=== PATIENT | male | born 1955 | race Caucasian/White ===

== ENCOUNTER 2017-02-06 15:59 | Observation (INO) | payer OTHER ==
[~2017-02-06] VITALS: Ht 175.3 cm; Wt 72.1 kg
--- NOTE | 2017-02-06 16:06 | NUR ---
TRIAGE; PT TO ED C/O LOWER ABD PAIN RADIATING INTO HIS GROIN SINCE 8AM TODAY. STATES HE STARTED TO VOMIT SINCE NOON ABOUT 2-3 TIMES, FEELS NAUSEOUS NOW. C/O LOWER BACK PAIN. DENIES ANY URINARY S/S AT THIS TIME. STATES PAIN IN GROIN IS CAUSING DISCOMFORT TO HIS TESTICLES. DENIES ANY DIARRHEA.
--- NOTE | 2017-02-06 16:09 | ED GI/GU/ABDOMINAL COMPLAINT ---
History of Present Illness General Chief Complaint: Abdominal Pain/Flank Pain Stated Complaint: ABD PAIN Source: patient, family, old records Exam Limitations: no limitations Allergies Coded Allergies: Penicillins (Intermediate, SWELLING 02/06/17) Triage Note: TRIAGE; PT TO ED C/O LOWER ABD PAIN RADIATING INTO HIS GROIN SINCE 8AM TODAY. STATES HE STARTED TO VOMIT SINCE NOON ABOUT 2-3 TIMES, FEELS NAUSEOUS NOW. C/O LOWER BACK PAIN. DENIES ANY URINARY S/S AT THIS TIME. STATES PAIN IN GROIN IS CAUSING DISCOMFORT TO HIS TESTICLES. DENIES ANY DIARRHEA. Triage Nurses Notes Reviewed? yes Onset: Abrupt Duration: hour(s): (8), constant, waxing and waning Timing: recent history Quality/Severity: aching, sharpness, severe Severity Numbers: 9 Location: left lower quadrant, right lower quadrant, suprapubic Radiation: back, groin Activities at Onset: none Prior Abdominal Problems: none No Modifying Factors: none Associated Symptoms: nausea/vomiting HPI: 61-year-old male with no medical history presents emergency room complaining of sudden onset of bilateral lower quadrant abdominal pain right greater then left radiating into his groin and lower back since 8:00 this morning. The pain started at 8 AM this morning periumbilical. He states that he's had 3 episodes of vomiting secondary to pain. He denies history of similar episodes in the past. Pain is constant waxing and waning in intensity sharp severe aching. Nothing makes it better or worse otherwise. No sick contacts. He has not taken anything for his symptoms no change in his bowel movements. No history of abdominal surgeries in the past. No fever no chills no chest pain shortness of breath. No hematuria dysuria urgency or frequency The patient denies any known trauma injury or heavy lifting he denies noting any hernia to his groin our abdomen. (ABBY NOBLES,BOBBI) Vital Signs & Intake/Output Vital Signs & Intake/Output Vital Signs Date Time Temp Pulse Resp B/P Pulse O2 O2 Flow FiO2 Ox Delivery Rate 02/06 1805 99.2 81 18 123/67 95 Room Air 02/06 1606 97.7 66 18 102/63 97 Room Air Reconcile Medications Diclofenac Sodium 75 MG TABLET.DR 1 TAB PO BID PAIN/INFLAMMATION (Reported) (JAMIE HERNANDEZ,BOBBY [place]) Past History Travel History Traveled to [place] past 21 day No Medical History Any Pertinent Medical History? none Surgical History Surgical History: none Psychosocial History What is your primary language [place] Zealander Tobacco Use: Never used ETOH Use: denies use Family History Hx Contributory? No (BOBBI WATTS) Review of Systems Review of Systems Constitutional: Reports: see HPI. All Other Systems: Reviewed and Negative Comments Review of systems: See HPI, All other systems negative. Constitutional, no chills no fever, no malaise HEENT: No visual changes no sore throat no congestion Cardiovascular: No chest pain , no palpitation Skin, no rashes, no change in skin Respiratory: No dyspnea no cough no sputum GI: nausea vomiting, no diarrhea, no bloating/constipation : No dysuria No hematuria, no frequency, no discharge Muscle skeletal: No joint pain,no back pain, no neck pain, Neurologic: No numbness no headache Psych: No stress Heme/endocrine: No bruising no bleeding Immunology: No lymphadenopathy (BOBBI WATTS) Physical Exam Physical Exam General Appearance: well developed/nourished, no apparent distress, alert Gastrointestinal: soft Comments: Well-developed well-nourished person in no acute distress HEENT: Normal EENT exam; PERRL, EOMI, HEAD is atraumatic. moist mucous membranes. Neck: Supple, normal range of motion Back: Nontender, no CVA tenderness. Full range of motion Cardiovascular: Regular rate and rhythms no murmurs rubs Respiratory: Chest nontender.There were no bony deformities, no asymmetry. No respiratory distress. Patient speaking in full complete sentences. Breath sounds clear to auscultation bilaterally: NO W/R/R Abdomen: Soft, periumbilical,/RLQ/LLQ tenderness to palpation nondistended, no appreciable organomegaly. Normal bowel sounds. (+) rebound, NO guarding, No ascites. No hernia Male : Normal external genitalia, testes nontender. No scrotal Swelling or mases, No lesions/discharge. No palpable hernia Extremity: No edema, full range of motion of extremities, Neuro: Alert oriented x3, motor sensory normal,There were no obvious focal neurologic abnormalities. Skin: No appreciable rash on exposed skin, skin is warm and dry. Psych: Mood and affect is normal, memory and judgment is normal. Core Measures ACS in differential dx? No Severe Sepsis Present: No Septic Shock Present: No (BOBBI WATTS) Progress Differential Diagnosis: appendicitis, bowel obstruction, colon cancer, diverticulitis, hernia, inflamm bowel dis, prostatitis, peptic ulcer, PUD/GERD, perforated viscous, pyelonephritis, SBO, ureterolithiasis, urinary retention, urethritis, UTI/pyelo Diagnostic Imaging: Viewed by Me: CT Scan. Discussed w/RAD: CT Scan. Radiology Impression: PATIENT: SJ GARSIA PRESENT AGE: 61 PATIENT ACCOUNT NO: [id number] : 55 LOCATION: [facility] ORDERING PHYSICIAN: BOBBI NOBLES SERVICE DATE: 02/06/17 EXAM TYPE: CAT - CT ABD & PELVIS W/O IV CONTRAS EXAMINATION: CT ABDOMEN AND PELVIS WITHOUT CONTRAST CLINICAL INFORMATION: Lower quadrant abdominal pain radiating into the back COMPARISON: None TECHNIQUE: Multidetector volumetric imaging was performed from the superior aspect of the liver through the pubic symphysis. Sagittal and coronal reformatted images were obtained on the technologist's workstation. DLP: 279.7 mGy-cm FINDINGS: LUNG BASES: The visualized lung bases are unremarkable. LIVER, GALLBLADDER, AND BILIARY TREE: The liver is normal in size, shape, and attenuation. No focal hepatic lesion or biliary ductal dilatation is present. The gallbladder is unremarkable with no evidence of radiopaque gallstones, gallbladder wall thickening, or obvious pericholecystic inflammatory changes. PANCREAS: Unremarkable. SPLEEN: Unremarkable. ADRENAL GLANDS: Unremarkable. KIDNEYS AND URETERS: The kidneys are normal in size, shape, and attenuation. No hydronephrosis, hydroureter, or calculi seen. No perinephric stranding. There is a parapelvic cyst within the right kidney measuring approximately 2.2 cm in diameter. There is a 2.7 cm exophytic cyst along the medial aspect of the left kidney. BLADDER: Unremarkable. GASTROINTESTINAL TRACT: There is significant inflammatory changes in the right lower quadrant. There is dilatation of a tubular structure which is blind ending and terminates in the pelvis measuring up to 1.5 cm. This structure is fluid-filled. Hyperdense material is noted within the proximal portion of the structure. Given the stranding of the adjacent mesentery and the overall appearance and location the finding is most suspicious for acute appendicitis. There are small lymph nodes within the mesentery surrounding this region. ABDOMINAL WALL: No significant hernia is appreciated. LYMPH NODES: Normal. VASCULAR: Unremarkable. PELVIC VISCERA: Prostate and seminal vesicles are unremarkable. OSSEOUS STRUCTURES: Unremarkable. IMPRESSION: Limited noncontrast study. Findings most concerning for acute appendicitis. No evidence for renal obstruction. DICTATED BY: VIJAY MARTINES MD DATE/TIME DICTATED:02/06/171653 INSULATION TECHNICIAN:TESSA DATE/TIME TRANSCRIBED:02/06/171653 CONFIDENTIAL, DO NOT COPY WITHOUT APPROPRIATE AUTHORIZATION. <Electronically signed in Other Vendor System> SIGNED BY: VIJAY MARTINES MD 02/06/17 1716 Initial ED EKG: normal intervals, normal p-waves, normal QRS complex, normal sinus rhythm (80) (ABBY NOBLES,BOBBI) Plan of Care: Orders Procedure Date/time Status Add-on Test (ER Only) 02/06 1853 Active EKG 02/06 1733 Active TYPE & SCREEN (NOT X-MATCH) 02/06 1725 Complete PARTIAL THROMBOPLASTIN TIME 02/06 1630 Complete PROTHROMBIN TIME 02/06 1630 Complete Saline Lock 02/06 1616 Active URINALYSIS 02/06 1616 Complete LIPASE 02/06 1616 Complete COMPREHENSIVE METABOLIC PANEL 02/06 1616 Complete CBC WITHOUT DIFFERENTIAL 02/06 161 Complete AMYLASE 02/06 161 Complete Laboratory Tests 02/06/17 1822: Urinalysis LIGHT H, Urine Color YEL, Urine Clarity CLEAR, Urine pH 6.0, Ur Specific [place] 1.025, Urine Protein TRACE H, Urine Ketones >=80, Urine Nitrite NEG, Urine Bilirubin NEG@ICTO, Urine Urobilinogen 0.2, Ur Leukocyte Esterase NEG, Ur Microscopic SEDIMENT EXAMINED, Urine RBC RARE, Urine WBC 1-3 H , Ur Epithelial Cells RARE, Urine Bacteria FEW H, Urine Mucus MOD H, Urine Hemoglobin TRACE-LYSED H, Urine Glucose NEG 02/06/17 1725: APTT Cancelled 02/06/17 1630: Anion Gap 9, Estimated GFR > 60, BUN/Creatinine Ratio 21.3, Glucose 112 H, Calcium 10.1, Total Bilirubin 1.0, AST 15 L, ALT 31, Alkaline Phosphatase 88, Total Protein 7.2, Albumin 4.5, Globulin 2.7, Albumin/Globulin Ratio 1.7, Amylase 58, Lipase 50, PT 11.7, INR 1.12, APTT 32, CBC w Diff MAN DIFF ORDERED, RBC 4.74, MCV 96.7 H, MCH 32.2 H, RDW 14.4, MPV 7.2 L, Gran % 91.4 H, Lymphocytes % 3.9 L, Monocytes % 4.7, Eosinophils % 0, Basophils % 0 L, Absolute Granulocytes 15.7 H, Segmented Neutrophils 92 H, Band Neutrophils 2, Absolute Lymphocytes 0.7 L, Lymphocytes 6 L, Absolute Monocytes 0.8 H, Absolute Eosinophils 0, Absolute Basophils 0, Platelet Estimate ADEQUATE, Normal RBC Morphology N, PUBS MCHC 33.3 Labs ordered old records reviewed patient medicated with Toradol 30, morphine 4 IV Zofran 4 IV old records reviewed CAT scan ordered case was discussed with Dr. Patterson agrees with the plan 02/06/2017 5:31:34 PM call placed to surgery discussed the patient is is CAT scan and lab results. Patient reports pain is improved with morphine. Case discussed with Dr. Patterson 1800 CASE D/W DR BLACK WILL HAVE SURGICAL PA EVALUATE THE PT 1809 SURGICA PA Sabino CARRILLO IN DEPT TO EVAL PT (BOBBI WATTS) Departure Departure Time of Disposition: 1836 Disposition: STILL A PATIENT Condition: Stable Clinical Impression Primary Impression: Appendicitis Departure Forms: Customer Survey General Discharge Information OR/GI Note Spoke With: WAYNE HERNANDEZ,RICCARDO Nash ED Treatment Decision: SJ GARSIA requires urgent operative management or an emergent procedure that cannot be performed in the Emergency Room setting. Transport To: [facility] (BOBBI WATTS) PA/REAL ESTATE TEACHER Co-Sign Statement Statement: ED Attending supervision documentation- [] I saw and evaluated the patient. I have also reviewed all the pertinent lab results and diagnostic results. I agree with the findings and the plan of care as documented in the PA's/REAL ESTATE TEACHER's documentation. [x] I have reviewed the ED Record and agree with the PA's/REAL ESTATE TEACHER's documentation. [] Additions or exceptions (if any) to the PAs/REAL ESTATE TEACHER's note and plan are summarized below: [] (JAMIE HERNANDEZ,BOBBY [place])
--- NOTE | 2017-02-06 16:10 | NUR ---
PT TO ROOM20 BY WHEELCHAIR. MALLORIE MORA TO BEDSIDE FOR PT EVAL.
--- NOTE | 2017-02-06 16:38 | NUR ---
BLOOD DRAWN AND SENT TO LAB. IV EST, PT MEDICATED WITH ZOFRAN,TORADOL, AND MORPHINE PER EMAR. NS INFUSING PER EMAR.
--- NOTE | 2017-02-06 16:40 | NUR ---
PT TO CT VIA STRETCHER
[2017-02-06] MEDS ORDERED: DICLOFENAC SODI75 M2 PO (16:43)
[2017-02-06 16:44] LABS: ABSOLUTE BASOPHIL COUNT 0 /CUMM (0.0-0.2); ABSOLUTE EOSINOPHIL COUNT 0 /CUMM (0.0-0.7); ABSOLUTE GRANULOCYTE CT 15.7 /CUMM (1.4-6.5); ABSOLUTE LYMPH COUNT 0.7 /CUMM (1.2-3.4); ABSOLUTE MONOCYTE COUNT 0.8 /CUMM (0.10-0.60); BASOPHIL % 0 % (0.0-2.0); EOSINOPHIL % 0 % (0-5); HEMATOCRIT 45.8 % (42-52); MEAN CORPUSCULAR HGB 32.2 PG (27.0-31.0); MEAN CORPUSCULAR HGB CONC 33.3 G/DL (33.0-37.0); MEAN CORPUSCULAR VOLUME 96.7 FL (80.0-94.0); MEAN PLATELET VOLUME 7.2 FL (7.4-10.4); PLATELET COUNT 297 /CUMM (130-400); RBC DISTRIBUTION WIDTH 14.4 % (11.5-14.5); RED BLOOD CELL CT 4.74 /CUMM (4.70-6.10)
[2017-02-06 16:48] LABS: WHITE BLOOD CELL COUNT 17.2 /CUMM (4.8-10.8)
--- NOTE | 2017-02-06 17:16 | CT SCAN REPORT ---
EXAMINATION: CT ABDOMEN AND PELVIS WITHOUT CONTRAST CLINICAL INFORMATION: Lower quadrant abdominal pain radiating into the back COMPARISON: None TECHNIQUE: Multidetector volumetric imaging was performed from the superior aspect of the liver through the pubic symphysis. Sagittal and coronal reformatted images were obtained on the technologist's workstation. DLP: 279.7 mGy-cm FINDINGS: LUNG BASES: The visualized lung bases are unremarkable. LIVER, GALLBLADDER, AND BILIARY TREE: The liver is normal in size, shape, and attenuation. No focal hepatic lesion or biliary ductal dilatation is present. The gallbladder is unremarkable with no evidence of radiopaque gallstones, gallbladder wall thickening, or obvious pericholecystic inflammatory changes. PANCREAS: Unremarkable. SPLEEN: Unremarkable. ADRENAL GLANDS: Unremarkable. KIDNEYS AND URETERS: The kidneys are normal in size, shape, and attenuation. No hydronephrosis, hydroureter, or calculi seen. No perinephric stranding. There is a parapelvic cyst within the right kidney measuring approximately 2.2 cm in diameter. There is a 2.7 cm exophytic cyst along the medial aspect of the left kidney. BLADDER: Unremarkable. GASTROINTESTINAL TRACT: There is significant inflammatory changes in the right lower quadrant. There is dilatation of a tubular structure which is blind ending and terminates in the pelvis measuring up to 1.5 cm. This structure is fluid-filled. Hyperdense material is noted within the proximal portion of the structure. Given the stranding of the adjacent mesentery and the overall appearance and location the finding is most suspicious for acute appendicitis. There are small lymph nodes within the mesentery surrounding this region. ABDOMINAL WALL: No significant hernia is appreciated. LYMPH NODES: Normal. VASCULAR: Unremarkable. PELVIC VISCERA: Prostate and seminal vesicles are unremarkable. OSSEOUS STRUCTURES: Unremarkable. IMPRESSION: Limited noncontrast study. Findings most concerning for acute appendicitis. No evidence for renal obstruction.
[2017-02-06 17:25] LABS: GRANULOCYTE % 91.4 % (42.2-75.2)
--- NOTE | 2017-02-06 18:04 | NUR ---
KEFZOL INFUSING PER EMAR. PRE-OP SCRUB COMPLETED.
--- NOTE | 2017-02-06 18:08 | NUR ---
SURGICAL PA AT BEDSIDE FOR PT EVAL.
--- NOTE | 2017-02-06 18:13 | Admission Core Measures ---
Admission Lab Results I reviewed the following labs: Laboratory Tests 02/06 1630 Chemistry Sodium (137 - 145 mmol/L) 140 Potassium (3.5 - 5.1 mmol/L) 4.5 Chloride (98 - 107 mmol/L) 102 Carbon Dioxide (22 - 30 mmol/L) 28 Anion Gap (5 - 16) 9 BUN (9 - 20 mg/dL) 17 Creatinine (0.7 - 1.2 mg/dL) 0.8 Estimated GFR (>60 ml/min) > 60 BUN/Creatinine Ratio (7 - 25 %) 21.3 Glucose (65 - 99 mg/dL) 112 H Calcium (8.4 - 10.2 mg/dL) 10.1 Total Bilirubin (0.2 - 1.3 mg/dL) 1.0 AST (17 - 59 U/L) 15 L ALT (21 - 72 U/L) 31 Alkaline Phosphatase (< 127 U/L) 88 Total Protein (6.3 - 8.2 g/dL) 7.2 Albumin (3.5 - 5.0 g/dL) 4.5 Globulin (1.9 - 4.2 gm/dL) 2.7 Albumin/Globulin Ratio (1.1 - 2.2 %) 1.7 Amylase (30 - 110 U/L) 58 Lipase (23 - 300 U/L) 50 Hematology CBC w Diff MAN DIFF ORDERED WBC (4.8 - 10.8 /CUMM) 17.2 H RBC (4.70 - 6.10 /CUMM) 4.74 Hgb (14.0 - 18.0 G/DL) 15.3 Hct (42 - 52 %) 45.8 MCV (80.0 - 94.0 FL) 96.7 H MCH (27.0 - 31.0 PG) 32.2 H RDW (11.5 - 14.5 %) 14.4 Plt Count (130 - 400 /CUMM) 297 MPV (7.4 - 10.4 FL) 7.2 L Gran % (42.2 - 75.2 %) 91.4 H Lymphocytes % (20.5 - 51.1 %) 3.9 L Monocytes % (1.7 - 9.3 %) 4.7 Eosinophils % (0 - 5 %) 0 Basophils % (0.0 - 2.0 %) 0 L Absolute Granulocytes (1.4 - 6.5 /CUMM) 15.7 H Segmented Neutrophils (42.2 - 75.2 %) 92 H Band Neutrophils (0.0 - 5.0 %) 2 Absolute Lymphocytes (1.2 - 3.4 /CUMM) 0.7 L Lymphocytes (20.5 - 51.1 %) 6 L Absolute Monocytes (0.10 - 0.60 /CUMM) 0.8 H Absolute Eosinophils (0.0 - 0.7 /CUMM) 0 Absolute Basophils (0.0 - 0.2 /CUMM) 0 Platelet Estimate (ADEQUATE) ADEQUATE Normal RBC Morphology N PUBS MCHC (33.0 - 37.0 G/DL) 33.3 Admission Meds I reviewed the following Meds: Current Medications Sig/Merari Start time Last Medication Dose Stop Time Status Admin Metronidazole 500 MG ONCE ONE 02/06 1745 AC (Flagyl) 02/06 1844 N/A 1 UNIT (No Carrier) Acute Coronary Syndrome Inclusion Criteria ACS Diagnosis No Inpatient Core Measures LDL Reminder: If No, please order W/I first 24hr of stay Congestive Heart Failure Inclusion Criteria CHF Diagnosis No Cerebrovascular accident Inclusion Criteria CVA/TIA Diagnosis No Inpatient Core Measures Bedside Swallow Eval Reminder: If BSE failed, place ST order Antithrombotic Reminder: Order Antithrombotic Medication by end of day 2 Antithrombotic Reminder: Document Reason Antithrombotic Not ordered by end of day 2 AFIB/Flutter Reminder: If Present, add to problem list AFIB/Flutter Reminder: Order Anticoag Medication for pts with AFIB/Flutter Atherosclerosis Reminder: If Present, add to problem list LDL Reminder: If No, please order W/I first 24hr of stay PT Order Reminder: If No, please order Venous thromboembolism Inpatient Core Measures VTE Risk Factors: Age > 40, Surgery No [facility] VTE prophylaxis d/t No contraindications No VTE Pharm Prophylaxis d/t No contraindications Inclusion Criteria - Per Current guidelines, there needs to be overlap - treatment for the first 5 days of Warfarin therapy. - Parenteral Anticoagulation (IV or SC) needs to be - given along with Warfarin therapy. VTE Diagnosis No VTE Type NONE VTE Confirmed by (Test) NONE Problem List As ranked by this Provider includes Assessment & Plan 1. Appendicitis HOME MEDS Home Med List Diclofenac Sodium 75 MG TABLET.DR 1 TAB PO BID PAIN/INFLAMMATION (Reported)
--- NOTE | 2017-02-06 18:22 | History & Physical Pre-Op ---
DOUG LEHMAN 02/06/17 181: General Information and HPI MD Statement: I have seen and personally examined SJ GARSIA and documented this H&P. The patient is a 61 year old M who presented with a patient stated chief complaint of abdominal pain 1 day. Source of Information: patient Exam Limitations: no limitations History of Present Illness: 61-year-old male who presented to the emergency department earlier today with complaints of abdominal pain which started earlier this morning. The patient was seen he reports feeling well last night and this morning when he awoke. He went to work and shortly thereafter started experiencing some periumbilical sharp and crampy abdominal pain which is constant in nature. Shortly thereafter he developed episodes of nausea/vomiting and anorexia. His pain slowly migrated to the right lower quadrant and groin area. He had to regular bowel movements earlier today and came to the emergency department for further workup. He had no other complaints at the current time and denied any fever/chills, dysuria, or previous similar episodes. Allergies/Medications Allergies: Coded Allergies: Penicillins (Intermediate, SWELLING 02/06/17) Home Med list Diclofenac Sodium 75 MG TABLET. 1 TAB PO BID PAIN/INFLAMMATION (Reported) Past History Medical History EENT: cataracts Surgical History Pertinent Surgical History: none Past Family/Social History Psychosocial History Where Do You Live? Home Who Do You Live With? spouse Services at Home None Smoking Status: Unknown If Ever Smoked ETOH Use: denies use Illicit Drug Use: denies illicit drug use Functional Ability ADLs Independent: dressing, eating, toileting, bathing. Ambulation: independent IADLs Independent: shopping, housework, finances, food prep, telephone, transportation , medication admin. Employment History Employment: Employed Profession/Employer: [employer] Review of Systems Review of Systems Constitutional: Denies: chills, diaphoresis. Cardiovascular: Denies: chest pain, palpitations. Respiratory: Denies: cough, short of breath. Genitourinary: Denies: dysuria, hematuria. Exam & Diagnostic Data Last 24 Hrs of Vital Signs/I&O Vital Signs Date Time Temp Pulse Resp B/P Pulse O2 O2 Flow FiO2 Ox Delivery Rate 02/06 1805 99.2 81 18 123/67 95 Room Air 02/06 1606 97.7 66 18 102/63 97 Room Air Laboratory Tests 02/06 1630 Chemistry Sodium (137 - 145 mmol/L) 140 Potassium (3.5 - 5.1 mmol/L) 4.5 Chloride (98 - 107 mmol/L) 102 Carbon Dioxide (22 - 30 mmol/L) 28 Anion Gap (5 - 16) 9 BUN (9 - 20 mg/dL) 17 Creatinine (0.7 - 1.2 mg/dL) 0.8 Estimated GFR (>60 ml/min) > 60 BUN/Creatinine Ratio (7 - 25 %) 21.3 Glucose (65 - 99 mg/dL) 112 H Calcium (8.4 - 10.2 mg/dL) 10.1 Total Bilirubin (0.2 - 1.3 mg/dL) 1.0 AST (17 - 59 U/L) 15 L ALT (21 - 72 U/L) 31 Alkaline Phosphatase (< 127 U/L) 88 Total Protein (6.3 - 8.2 g/dL) 7.2 Albumin (3.5 - 5.0 g/dL) 4.5 Globulin (1.9 - 4.2 gm/dL) 2.7 Albumin/Globulin Ratio (1.1 - 2.2 %) 1.7 Amylase (30 - 110 U/L) 58 Lipase (23 - 300 U/L) 50 Hematology CBC w Diff MAN DIFF ORDERED WBC (4.8 - 10.8 /CUMM) 17.2 H RBC (4.70 - 6.10 /CUMM) 4.74 Hgb (14.0 - 18.0 G/DL) 15.3 Hct (42 - 52 %) 45.8 MCV (80.0 - 94.0 FL) 96.7 H MCH (27.0 - 31.0 PG) 32.2 H RDW (11.5 - 14.5 %) 14.4 Plt Count (130 - 400 /CUMM) 297 MPV (7.4 - 10.4 FL) 7.2 L Gran % (42.2 - 75.2 %) 91.4 H Lymphocytes % (20.5 - 51.1 %) 3.9 L Monocytes % (1.7 - 9.3 %) 4.7 Eosinophils % (0 - 5 %) 0 Basophils % (0.0 - 2.0 %) 0 L Absolute Granulocytes (1.4 - 6.5 /CUMM) 15.7 H Segmented Neutrophils (42.2 - 75.2 %) 92 H Band Neutrophils (0.0 - 5.0 %) 2 Absolute Lymphocytes (1.2 - 3.4 /CUMM) 0.7 L Lymphocytes (20.5 - 51.1 %) 6 L Absolute Monocytes (0.10 - 0.60 /CUMM) 0.8 H Absolute Eosinophils (0.0 - 0.7 /CUMM) 0 Absolute Basophils (0.0 - 0.2 /CUMM) 0 Platelet Estimate (ADEQUATE) ADEQUATE Normal RBC Morphology N PUBS MCHC (33.0 - 37.0 G/DL) 33.3 CAT scan of the abdomen pelvis is positive for acute appendicitis. Physical Exam: Gen.: Alert and obvious distress Skin: Warm and dry without jaundice Cardiac: S1-S2 regular Pulmonary: Bilateral breath sounds are equal with good exchange Abdomen: Soft, nondistended, moderate right lower quadrant tenderness with rebound but no guarding, bowel sounds positive. No masses or hernias were appreciated. Extremities: Bilateral lower extremities are warm without calf tenderness or significant edema. Assessment/Plan Assessment/Plan: Assessment: 61-year-old male with a one-day history of abdominal pain. His workup is positive for acute appendicitis. The case is discussed with Kenyon Chou MD. Plan: The patient be kept nothing by mouth with IV hydration IV antibiotics PRN antiemetics, antipyretics, and pain medication GI and DVT prophylaxis The patient was brought to the operating theater later this evening for a laparoscopic appendectomy. The plan was discussed with the patient and at bedside were in agreement. As Ranked By This Provider Problem List: 1. Appendicitis WAYNE HERNANDEZ,KENYON Nash 02/06/17 1950: Exam & Diagnostic Data Last 24 Hrs of Vital Signs/I&O Vital Signs Date Time Temp Pulse Resp B/P Pulse O2 O2 Flow FiO2 Ox Delivery Rate 02/06 1805 99.2 81 18 123/67 95 Room Air 02/06 1606 97.7 66 18 102/63 97 Room Air Attending MD Review Statement Attending Statement Attending MD Statement: examined this patient, discuss w/resident/PA/SCHOOL MANAGER, discussed with family, reviewed images Attending Assessment/Plan: 61YO MALE WITHOUT ANY SIGNIFICANT MEDICAL HISTORY PRESENT WITH RAPID PROGRESSION OF PERIUMBILICAL FOLLOWED BY RLQ ABDOMINAL PAIN BEGINNING THIS MORNING. ANOREXIA , NAUSEA, VOMITING. CHILLS. EXAM C/W FOCAL RLQ PERITONITIS. CT IMAGES PERSONALLY VIEWED. ACUTE APPENDICITIS WITH FECALITH. RECOMMEND IV BROAD SPECTRUM ANTIBIOTICS AND EMERGENT LAPAROSCOPIC APPENDECTOMY. INFORMED OF RISKS OF SURGERY INCLUDING BUT NOT LIMITED TO BLEEDING, INFECTION. HE AGREES.
--- NOTE | 2017-02-06 18:27 | NUR ---
PINK TOP DRAWN AND SENT TO LAB. URINE TRIO SENT TO LAB. FLAGYL INFUSING PER EMAR.
--- NOTE | 2017-02-06 18:31 | NUR ---
PRE-OP CHECKLIST COMPLETED.
--- NOTE | 2017-02-06 18:34 | NUR ---
ABO RH TUBE DRAWN AND WALKED TO LAB.
[2017-02-06 19:11] LABS: PT 11.7 SEC (9.4-12.5); PTT 32 SEC (25-37)
--- NOTE | 2017-02-06 19:22 | NUR ---
RODRICK COMPLETED INFUSING. MEDICATED WITH MORPHINE FOR 8/10 PAIN PER EMAR. TOLERATED WELL. WILL CTM.
--- NOTE | 2017-02-06 19:55 | NUR ---
SURGICAL PA AND DR. BLACK HERE TO EVAL PT
--- NOTE | 2017-02-06 20:08 | NUR ---
PT TRANSPORTED TO THE OR BY SURGICAL PA
[2017-02-06] MEDS ORDERED: PERCOCET 5-3251 EACH PO (21:52)
--- NOTE | 2017-02-06 21:55 | Patient Discharge Instructions ---
Discharge Instructions General Discharge Information You were seen/treated for: Acute appendicitis You had these procedures: Laparoscopic appendectomy Watch for these problems: Significantly increased pain, vomiting, or temperatures greater than 101 Increased redness or drainage from around the incisions No bath, but you may shower: Yes Other wound care: In 2 days remove Band-Aids leading white strips intact until seen by your surgeon. He may shower regularly and Dry. Diet Continue normal diet: Yes Activity Activity Self Limited: Yes Pounds, do NOT lift more than: 10 Other activity limits: Do not drive or operate heavy machinery while on pain medications Acute Coronary Syndrome Inclusion Criteria At DC or during hospital stay patient has or had the following: ACS DIAGNOSIS No Discharge Core Measures Meds if any: Prescribed or Continued at Discharge Meds if any: NOT Prescribed or Continued at Discharge Congestive Heart Failure Inclusion Criteria At DC or during hospital stay patient has or had the following: CHF DIAGNOSIS No Discharge Core Measures Meds if any: Prescribed or Continued at Discharge Meds if any: NOT Prescribed or Continued at Discharge Cerebrovascular accident Inclusion Criteria At DC or during hospital stay patient has or had the following: CVA/TIA Diagnosis No Discharge Core Measures Meds if any: Prescribed or Continued at Discharge Meds if any: NOT Prescribed or Continued at Discharge Venous thromboembolism Inclusion Criteria VTE Diagnosis No VTE Type NONE VTE Confirmed by (Test) NONE Discharge Core Measures - Per Current guidelines, there needs to be overlap - treatment for the first 5 days of Warfarin therapy. - If discharged on Warfarin prior to 5 days of - overlap therapy, the patient will need to be - assessed for post discharge needs including - *Post discharge parental anticoagulation - *Warfarin and/or parental anticoagulation education - *Follow up date to check INR post discharge At least 5 days overlap therapy as Inpatient No Meds if any: Prescribed or Continued at Discharge Note: Overlap Therapy is Warfarin and Anticoagulant Meds if any: NOT Prescribed or Continued at Discharge
--- NOTE | 2017-02-06 22:29 | Operative Report ---
Operative/Inv Procedure Report Surgery Date: 02/06/17 Name of Procedure: Laparoscopic appendectomy Pre-Operative Diagnosis: Acute appendicitis Post-Operative Diagnosis: Same Estimated Blood Loss: scant Surgeon/Conveyor Operator: WAYNE HERNANDEZ,RICCARDO Nash/Norm NOBLES Anesthesia: general endotracheal tube Specimens: Appendix Operative/Procedure Note Note: After consent is brought to the operating room and laid supine. Gen. anesthesia was obtained and his abdomen was prepped and draped. Skin below the umbilicus was able to local anesthesia a curvilinear incision made sharply. Subcutaneous tissues were dissected bluntly we identified the fascia. It was grasped with Elma's and a fasciotomy created sharply. Stay sutures were placed and a blunt Ken port placed. Pneumoperitoneum was achieved. 2, 5 mm ports were placed in the suprapubic region and left lower quadrant after local anesthesia was instilled and under direct vision the camera. He's placed in Trendelenburg and rotated towards the left. Appendix was identified. It was inflamed throughout its course. There was a fecalith impacted in the proximal portion. There is no perforation. The fecalith was milked back into the cecum to allow resection of the base. There is some necrosis of the base but no perforation. The mesentery was diminutive and decision made to staple both the mesentery and the appendix concurrently. This was accomplished with the Endo CORINNE Dias load. Appendix placed in Endo Catch bag and cinched up. The right lower quadrant and pelvis with and suction irrigated normal saline. Staple lines were reinspected and hemostasis was normal. The ports were then delivered and appendix passed off the field. The fascia was closed with 0 Vicryl suture. Skin incisions closed with 4-0 Vicryl. Steri-Strips and sterile dressing applied. Sponge and needle counts are correct CC: PRAKASH HERNANDEZ,COLETTE Billy
[2017-02-06 22:37] VITALS: BP 112/60
[2017-02-07 01:01] VITALS: BP 110/52
[2017-02-07 03:17] VITALS: BP 114/52
[2017-02-07 06:56] VITALS: BP 102/58
--- NOTE | 2017-02-07 07:47 | PN- General Surgery ---
See Addendum Subjective Subjective: Post op Awake, alert Has been ambulating in room Voiding spontaneously +flatus Pain well controlled - does not like to take narcotics Tolerating clears, awaiting breakfast tray Wants to go home Objective Vital Signs and I&Os Vital Signs Date Time Temp Pulse Resp B/P Pulse O2 O2 Flow FiO2 Ox Delivery Rate 02/07 0656 97.5 58 20 102/58 92 02/07 0317 98.0 74 20 114/52 94 02/07 0101 98.7 85 20 110/52 94 02/06 2237 98.2 77 20 112/60 92 02/06 1805 99.2 81 18 123/67 95 Room Air 02/06 1606 97.7 66 18 102/63 97 Room Air Intake & Output 02/07 0800 02/07 0000 02/06 1600 02/06 0800 02/06 0000 02/05 1600 Intake Total 600 Output Total 450 Balance 150 Intake, IV 600 Output, Urine 450 Patient 159 lb Weight Physical Exam: vss, afebrile this am General: alert and oriented times three Chest:clear anteriorly bilaterally, RRR Abd: soft, good bs, nontender, nondistended Ext: warm, no edema Wounds: dressed, dry Current Medications: Current Medications Sig/Merari Start time Last Medication Dose Route Stop Time Status Admin Cefazolin Sodium 1,000 MG IQ8 02/07 0000 AC 02/07 IV 02/07 0801 0012 Cefazolin Sodium 0 .STK-MED ONE 02/06 1747 DC .ROUTE Cefazolin Sodium 2 GM ONCE ONE 02/06 1745 DC 02/06 N/A 1 UNIT IV 02/06 1814 1804 Dextrose/Sodium 1,000 ML .[id number] 02/06 2200 AC 02/06 Chloride IV 2231 Heparin Sodium 5,000 UNIT Q8 02/06 2200 AC 02/06 (Porcine) SC 2240 Influenza Virus 0.5 ML ONCE ONE 02/06 2245 DC Vaccine IM 02/06 2246 Ketorolac 30 MG ONCE ONE 02/06 1630 DC 02/06 Tromethamine IV 02/06 1631 1640 Ketorolac 0 .STK-MED ONE 02/06 1628 DC Tromethamine .ROUTE Metronidazole 500 MG ONCE ONE 02/06 1745 DC 02/06 N/A 1 UNIT IV 02/06 1844 1823 Morphine Sulfate 2 MG Q3P PRN 02/06 2200 AC IV Morphine Sulfate 0 .STK-MED ONE 02/06 1920 DC .ROUTE Morphine Sulfate 2 MG ONCE ONE 02/06 1915 DC 02/06 IV 02/07 1916 192 Morphine Sulfate 4 MG ONCE ONE 02/06 1630 DC 02/06 IV 02/06 1631 1640 Morphine Sulfate 0 .STK-MED ONE 02/06 1627 DC .ROUTE Ondansetron HCl 4 MG Q6P PRN 02/06 220 AC IV Ondansetron HCl 0 .STK-MED ONE 02/06 1627 DC .ROUTE Ondansetron HCl 4 MG ONCE ONE 02/06 1615 DC 02/06 IV 02/06 1616 1640 Oxycodone/ 1 TAB Q4P PRN 02/06 220 AC 02/07 Acetaminophen PO 0608 Oxycodone/ 2 TAB Q4P PRN 02/06 220 AC Acetaminophen PO Sodium Chloride 1,000 ML BOLUS ONE 02/06 1630 DC 02/06 IV 02/06 1729 1640 Assessment/Plan Assessment/Plan 61 yo male s/p lap appy pod 1 dc home after breakfast fu [address] Chou all instructions given, all questions answered Core Measures/Miscellaneous Venous Thromboembolism VTE Risk Factors: Age > 40 VTE Contraindications: No Contraindications VTE Diagnosis: No VTE Type: NONE VTE Confirmed by (Test): NONE Beta Felisha Is Beta Felisha a Home Med? No Antibiotics Is Patient on Antibiotics? Yes (macario op 24 hrs)
[2017-02-07] MEDS ORDERED: PERCOCET 5-3251 EACH PO ×3 (08:16→09:19)
[2017-02-07 08:18] LABS: ABSOLUTE BASOPHIL COUNT 0 /CUMM (0.0-0.2); ABSOLUTE EOSINOPHIL COUNT 0 /CUMM (0.0-0.7); ABSOLUTE GRANULOCYTE CT 10.6 /CUMM (1.4-6.5); ABSOLUTE MONOCYTE COUNT 0.4 /CUMM (0.10-0.60); BASOPHIL % 0 % (0.0-2.0); EOSINOPHIL % 0 % (0-5); MEAN PLATELET VOLUME 7.8 FL (7.4-10.4); RED BLOOD CELL CT 3.95 /CUMM (4.70-6.10)
[2017-02-07 09:30] LABS: ABSOLUTE LYMPH COUNT 0.6 /CUMM (1.2-3.4); MEAN CORPUSCULAR HGB 32.4 PG (27.0-31.0); MEAN CORPUSCULAR HGB CONC 33.1 G/DL (33.0-37.0); MEAN CORPUSCULAR VOLUME 97.9 FL (80.0-94.0); PLATELET COUNT 233 /CUMM (130-400); RBC DISTRIBUTION WIDTH 14.5 % (11.5-14.5); WHITE BLOOD CELL COUNT 11.5 /CUMM (4.8-10.8)
--- NOTE | 2017-02-07 09:32 | PN- Att Addend ---
Attending Addendum Attending Brief Note Patient reports mild right lower quadrant pain at the site of incision General Appearance: Alert, No Acute Distress Skin: Grossly normal HEENT: PEERLA Neck: Supple, No JVD Cardiovascular: Regular Rate, Normal S1, Normal S2, No Murmurs Lungs: Clear to Auscultation, Normal Air Movement Abdomen: Normal Bowel Sounds, Soft, No Tenderness Neurological: Normal Speech, Strength at 5/5 X4 Ext, Cranial Nerves 3-12 NL, Reflexes 2+ Extremities: No Clubbing, No Cyanosis, No Edema Vascular: Normal Pulses Assessment 61-year-old male with no significant past medical history and has not seen a primary care over few years presenting with acute appendicitis status post laparoscopic appendectomy day 1 with no complications. He is tolerating oral diet and has minimal pain ready for home discharge. He'll be followed up at our office within a week of discharge. Plan DC fluids and minimize pain meds Patient is stable for discharge Advised to follow-up after office within a week of discharge Current Medications Sig/Merari Start time Last Medication Dose Route Stop Time Status Admin Cefazolin Sodium 1,000 MG IQ8 02/07 0000 DC 02/07 IV 02/07 0801 0828 Cefazolin Sodium 0 .STK-MED ONE 02/06 1747 DC .ROUTE Cefazolin Sodium 2 GM ONCE ONE 02/06 174 DC 02/06 N/A 1 UNIT IV 02/06 1814 1804 Dextrose/Sodium 1,000 ML .[id number] 02/06 2200 AC 02/06 Chloride IV 2231 Heparin Sodium 5,000 UNIT Q8 02/06 2200 AC 02/06 (Porcine) SC 2240 Influenza Virus 0.5 ML ONCE ONE 02/06 2245 DC 02/07 Vaccine IM 02/06 2246 0828 Ketorolac 30 MG ONCE ONE 02/06 1630 DC 02/06 Tromethamine IV 02/06 1631 1640 Ketorolac 0 .STK-MED ONE 02/06 1628 DC Tromethamine .ROUTE Metronidazole 500 MG ONCE ONE 02/06 1745 DC 02/06 N/A 1 UNIT IV 02/06 1844 1823 Morphine Sulfate 2 MG Q3P PRN 02/06 2200 AC IV Morphine Sulfate 0 .STK-MED ONE 02/06 1920 DC .ROUTE Morphine Sulfate 2 MG ONCE ONE 02/06 191 DC 02/06 IV 03/19 1916 1922 Morphine Sulfate 4 MG ONCE ONE 02/06 1630 DC 02/06 IV 02/06 1631 1640 Morphine Sulfate 0 .STK-MED ONE 02/06 1627 DC .ROUTE Ondansetron HCl 4 MG Q6P PRN 02/06 2200 AC IV Ondansetron HCl 0 .STK-MED ONE 02/06 1627 DC .ROUTE Ondansetron HCl 4 MG ONCE ONE 02/06 1615 DC 02/06 IV 02/06 1616 1640 Oxycodone/ 1 TAB Q4P PRN 02/06 2200 AC 02/07 Acetaminophen PO 0608 Oxycodone/ 2 TAB Q4P PRN 02/06 220 AC Acetaminophen PO Sodium Chloride 1,000 ML BOLUS ONE 02/06 1630 DC 02/06 IV 02/06 1729 1640 Laboratory Tests 02/07 02/06 02/06 0646 1822 1725 Coagulation APTT Cancelled Hematology CBC w Diff Pending WBC Pending RBC Pending Hgb Pending Hct Pending MCV Pending MCH Pending RDW Pending Plt Count Pending MPV Pending PUBS MCHC Pending Urines Urinalysis LIGHT H Urine Color (YEL,AMB,STR) YEL Urine Clarity (CLEAR) CLEAR Urine pH (5.0 - 8.0) 6.0 Ur Specific [place] (1.001 - 1.035) 1.025 Urine Protein (NEG,<30 MG/DL) TRACE H Urine Ketones (NEG) >=80 Urine Nitrite (NEG) NEG Urine Bilirubin (NEG) NEG@ICTO Urine Urobilinogen (0.1 - 1.0 EU/dl) 0.2 Ur Leukocyte Esterase (NEG) NEG Ur Microscopic SEDIMENT EXAMINED Urine RBC (0 - 5 /HPF) RARE Urine WBC (0 - 2 /HPF) 1-3 H Ur Epithelial Cells (NONE,FEW) RARE Urine Bacteria (NEG/NONE) FEW H Urine Mucus (FEW,NONE) MOD H Urine Hemoglobin (NEG) TRACE-LYSED H Urine Glucose (N MG/DL) NEG 02/06 1630 Chemistry Sodium (137 - 145 mmol/L) 140 Potassium (3.5 - 5.1 mmol/L) 4.5 Chloride (98 - 107 mmol/L) 102 Carbon Dioxide (22 - 30 mmol/L) 28 Anion Gap (5 - 16) 9 BUN (9 - 20 mg/dL) 17 Creatinine (0.7 - 1.2 mg/dL) 0.8 Estimated GFR (>60 ml/min) > 60 BUN/Creatinine Ratio (7 - 25 %) 21.3 Glucose (65 - 99 mg/dL) 112 H Calcium (8.4 - 10.2 mg/dL) 10.1 Total Bilirubin (0.2 - 1.3 mg/dL) 1.0 AST (17 - 59 U/L) 15 L ALT (21 - 72 U/L) 31 Alkaline Phosphatase (< 127 U/L) 88 Total Protein (6.3 - 8.2 g/dL) 7.2 Albumin (3.5 - 5.0 g/dL) 4.5 Globulin (1.9 - 4.2 gm/dL) 2.7 Albumin/Globulin Ratio (1.1 - 2.2 %) 1.7 Amylase (30 - 110 U/L) 58 Lipase (23 - 300 U/L) 50 Coagulation PT (9.4 - 12.5 SEC) 11.7 INR (0.90 - 1.17) 1.12 APTT (25 - 37 SEC) 32 Hematology CBC w Diff MAN DIFF ORDERED WBC (4.8 - 10.8 /CUMM) 17.2 H RBC (4.70 - 6.10 /CUMM) 4.74 Hgb (14.0 - 18.0 G/DL) 15.3 Hct (42 - 52 %) 45.8 MCV (80.0 - 94.0 FL) 96.7 H MCH (27.0 - 31.0 PG) 32.2 H RDW (11.5 - 14.5 %) 14.4 Plt Count (130 - 400 /CUMM) 297 MPV (7.4 - 10.4 FL) 7.2 L Gran % (42.2 - 75.2 %) 91.4 H Lymphocytes % (20.5 - 51.1 %) 3.9 L Monocytes % (1.7 - 9.3 %) 4.7 Eosinophils % (0 - 5 %) 0 Basophils % (0.0 - 2.0 %) 0 L Absolute Granulocytes (1.4 - 6.5 /CUMM) 15.7 H Segmented Neutrophils (42.2 - 75.2 %) 92 H Band Neutrophils (0.0 - 5.0 %) 2 Absolute Lymphocytes (1.2 - 3.4 /CUMM) 0.7 L Lymphocytes (20.5 - 51.1 %) 6 L Absolute Monocytes (0.10 - 0.60 /CUMM) 0.8 H Absolute Eosinophils (0.0 - 0.7 /CUMM) 0 Absolute Basophils (0.0 - 0.2 /CUMM) 0 Platelet Estimate (ADEQUATE) ADEQUATE Normal RBC Morphology N PUBS MCHC (33.0 - 37.0 G/DL) 33.3 Vital Signs Date Time Temp Pulse Resp B/P Pulse O2 O2 Flow FiO2 Ox Delivery Rate 02/07 0656 97.5 58 20 102/58 92 02/07 0317 98.0 74 20 114/52 94 02/07 0101 98.7 85 20 110/52 94 02/06 2237 98.2 77 20 112/60 92 02/06 1805 99.2 81 18 123/67 95 Room Air 02/06 1606 97.7 66 18 102/63 97 Room Air
[2017-02-07 09:56] LABS: GRANULOCYTE % 91.7 % (42.2-75.2); HEMATOCRIT 38.7 % (42-52)
== END 2017-02-07 10:18 ==
LOC: ENRESERVDT → ENRESERVTM → ERH 15:59 → ER-OR 16:24 → ENPENDDIS 21:39 → PACUH 21:39 → 2NB 22:18
PROVIDERS: Physician Assistant Medical; Physician Assistant Surgical; ADMIT Surgery
DX: K35.80 Unspecified acute appendicitis (principal); M19.90 Unspecified osteoarthritis, unspecified site; F17.200 Nicotine dependence, unspecified, uncomplicated; Z23 Encounter for immunization
CPT/HCPCS: 6040; 36415; 74176; 81001; 88304; 93005; 93010; 96374; 96375; 96376; G0008; G0378; J0131; J0690; J1170; J1644; J1885; J2175; J2250; J2405; J3010; J7042; Q2036